=== PATIENT | female | born 1995 | race Caucasian/White ===

== ENCOUNTER 2019-06-13 08:04 | Inpatient (IN) | payer OTHER ==
[2019-06-13] MEDS ORDERED: Buffered Lidocaine 1% SYRIN* 1 ML/SYRINGE INTRADERM ONE (08:48)
[2019-06-13] MEDS ORDERED: Lactated Ringers 1000 ML Bag* 1,000 ML IV ONE ×2 (08:48→13:04)
--- NOTE | 2019-06-13 08:56 | HP ---
General Information - Reason for Visit at 40 6/7 weeks gestational age. - General Information Maternal Age: 24 Grav: 2 Para: 0 SAB: 1 IEA: 0 Estimated Due Date: 06/07/19 Determined By: Early Ultrasound Gestational Age in Weeks/Days: 40 6/7 Maternal Blood Type and Rh: A Positive - Results this Serology/RPR Result: Non-Reactive Rubella Result: Immune HBsAg Result: Negative HIV Result: Negative GBS Culture Result: Negative Past Medical History Delivery History: See Records Pertinent Past Medical History: See Records Past Medical History Comment: Hiatal hernia GERD Migraine headaches Anxiety/Depression Pertinent Past Surgical History: See Records Past Surgical History Comment: Ganglion cyst removal 2009 and 2010 Pertinent Family History: See Records - Patient is adopted - Antepartal Records Antepartal Records: Reviewed, Complicated by: - Popstdates Review of Systems Constitutional: Comfortable CV Complaint: No Respiratory: Shortness of Breath: No Gastrointestinal: No Nausea/Vomiting, Normal Bowel Movement Genitourinary: No Dysuria, No Bleeding, No Leaking Fluid Musculoskeletal: No Complaint, No Epigastric Pain Neurological: No Headache, No Visual Changes Movement: Normal Exam Allergies/Adverse Reactions: Allergies Penicillins Allergy (Verified 05/04/18 16:59) GI Upset Temp 98.6 BP 134/79 P 90's RR 18 POx 100% RA - Measurements Height: 5 ft 5 in Weight: 175 lb Weight in lbs: 175.874401 Body Mass Index (BMI): 29.1 Pre- Weight: 145 lb Weight Gained This : 30 lbs and 0 ozs - Exam Breast: Breast Exam Deferred CVA: No CVA Tenderness Extremities: No Edema Heart: Normal Rhythm/Heart Sounds HEENT: No Significant Findings Lungs: Clear Bilaterally Rectal: Rectal Exam Deferred Reflexes: DTR 2+ Thyroid: No Thyromegaly - Abdominal Exam Abdomen Exam: Non-Tender, Fundal Height Consistent with Dates - Ultrasound/Biophysical Profile Ultrasound Status: Not Done Biophysical Profile: Normal Reactive NST Targeted Exam Findings See L&D Outpatient Visit Provider Note for Findings: N/A Cervical Exam: 4cm Effacement: 80% Station: -1 Presenting Part: Vertex Membrane Status: Intact EFM Findings - External Monitor Findings Baseline Heart Rate: 135 External Monitor Findings: Accelerations Present, No Pattern of Variable or Late Decelerations Contractions: None Assessment/Plan - Assessment Postdates - Obstetrical Risk Factors Obstetrical Risk Factors: Post-Dates - Plan Plan: Induction, IV Hydration - Date/Time of Admission Date of Admission: 06/13/19 Time of Admission: 08:40
[2019-06-13] MEDS ORDERED: Lactated Ringers 1000 ML Bag* 1,000 ML IV SCH ×2 (09:00→22:00)
[2019-06-13] MEDS ORDERED: Oxytocin in LR* 20 UNITS/1,000 ML BAG IVPB ONE ×2 (09:02→20:27)
[2019-06-13 09:07] LABS: ABS Basophils 0.1 10^3/ul (0-0.2); ABS Eosinophils 0.1 10^3/ul (0-0.6); ABS Lymphocytes 1.5 10^3/ul (1.0-4.8); ABS Monocytes 0.6 10^3/ul (0-0.8); ABS Neutrophils 7.2 10^3/ul (1.5-7.7); Eosinophil % 0.9 %; Hematocrit 33 % (35-47); Hemoglobin 11.4 g/dL (12.0-16.0); Lymphocyte % 16.1 %; Mean Corpuscular HGB Conc 35 g/dL (31-36); Mean Corpuscular Hemoglobin 29 pg (27-31); Mean Corpuscular Volume 84 fL (80-97); Mean Platelet Volume 6.7 fL (7.4-10.4); Platelet Count 386 10^3/uL (150-450); Red Cell Distribution Width 15 % (10-15); White Blood Count 9.4 10^3/uL (3.5-10.8)
[2019-06-13] MEDS: Oxytocin in LR* 20 UNITS/1,000 ML BAG IVPB SCH ×2 (09:16→20:48)
[2019-06-13] MEDS ORDERED: OBEPIDURAL* 250 ML EPIDURAL ONE (12:37)
[2019-06-13] MEDS ORDERED: Bupivacaine 0.25% SDV PF* 10 ML VIAL INJ ONE (12:42)
[2019-06-13] MEDS ORDERED: Phenylephrine 40 MCG/ML SYRINGE IV PUSH PRN (13:04)
[2019-06-13] MEDS ORDERED: EPHEDrine (Pressors)* 50 MG/ML VIAL IV PUSH PRN (13:04)
[2019-06-13] MEDS ORDERED: Famotidine TAB* 20 MG PO PRN (13:04)
[2019-06-13] MEDS ORDERED: Sodium Citrate/Citric Acid* 15 ML UDC PO PRN (13:04)
[2019-06-13] MEDS ORDERED: OBEPIDURAL* 250 ML EPIDURAL SCH (14:00)
[2019-06-13] MEDS: Lactated Ringers 1000 ML Bag* 1,000 ML IV SCH ×2 (14:10→18:40)
[2019-06-13 18:31] LABS: Urine Benzodiazepine Screen None Detected (None Detect); Urine Opiates Screen None Detected (None Detect)
[2019-06-13] MEDS ORDERED: Misoprostol TAB* 200 MCG PR ONE (21:20)
[2019-06-13] MEDS ORDERED: Glycerin ADULT SUPP PR PRN (21:20)
[2019-06-13] MEDS ORDERED: Witch Hazel PAD* JAR TOPICAL PRN (21:20)
--- NOTE | 2019-06-13 21:24 | PROCNOTE ---
[facility] OB: Delivery Note - Delivery B Date of : 06/13/19 Time of : 20:55 Sex: Male Weight at : 8 lb 3 oz Score 1 Minute: 8 Score 5 Minutes: 8 Gestational Age in Weeks and Days at Delivery: 40 Weeks and 6 Days Delivery Method: Spontaneous Vaginal Labor: Induced Did Patient attempt ?: N/A, No Previous Amniotic Fluid: Clear Estimated Blood Loss: 350 Anesthesia/Analgesia: CEI for Labor - Nursery Level of Nursery: Regular/Bedside - Perineum Perineal Injury: Perineal Laceration, 2nd Degree Perineal Repair: By Delivering Practioner - Events Delivery Events of Note: None Apply
[2019-06-13] MEDS ORDERED: Ammonia Inhalant* 1 EA AMP ONE (22:07)
[2019-06-13] MEDS: Ibuprofen TAB* 600 MG PO PRN (22:14)
[2019-06-13] MEDS: Dibucaine 1% 28.35 GM TUBE PR PRN (22:15)
[2019-06-14] MEDS ORDERED: Lidocaine 1% INJ* 10 MG/ML 30 ML SDV ONE (00:06)
[2019-06-14] MEDS: Acetaminophen TAB* 325 MG PO PRN ×3 (03:55→20:17)
[2019-06-14 06:02] LABS: ABS Lymphocytes 1.5 10^3/ul (1.0-4.8); ABS Neutrophils 11.7 10^3/ul (1.5-7.7); Eosinophil % 0.2 %; Hematocrit 29 % (35-47); Hemoglobin 9.5 g/dL (12.0-16.0); Lymphocyte % 10.5 %; Mean Corpuscular HGB Conc 33 g/dL (31-36); Mean Corpuscular Hemoglobin 28 pg (27-31); Mean Corpuscular Volume 85 fL (80-97); Mean Platelet Volume 6.6 fL (7.4-10.4); Platelet Count 352 10^3/uL (150-450); Red Blood Count 3.35 10^6 /uL (3.70-4.87); Red Cell Distribution Width 15 % (10-15); White Blood Count 14.3 10^3/uL (3.5-10.8)
[2019-06-14] MEDS: Docusate CAP* 100 MG PO SCH ×3 (08:02→20:18)
[2019-06-14] MEDS: Ferrous Gluconate TAB* 324 MG TAB PO SCH ×2 (08:03→20:18)
[2019-06-14] MEDS: Ibuprofen TAB* 600 MG PO PRN ×3 (08:03→22:31)
[2019-06-14] MEDS ORDERED: Simethicone TAB* 80 MG TAB.CHEW PO SCH (08:30)
[2019-06-14] MEDS: Dibucaine 1% 28.35 GM TUBE PR PRN (20:17)
[2019-06-15] MEDS: Acetaminophen TAB* 325 MG PO PRN ×2 (00:18→04:21)
[2019-06-15] MEDS: Ibuprofen TAB* 600 MG PO PRN ×2 (04:21→13:29)
[2019-06-15 09:04] VITALS: BP 116/72
[2019-06-15] MEDS: Docusate CAP* 100 MG PO SCH (13:29)
== END 2019-06-15 15:45 | disposition home or self-care (01) | DRG 560 ==
LOC: MCHOBOUT 08:04 → MCHOB 08:54
PROVIDERS: ADMIT Obstetrics & Gynecology; ATTEND Obstetrics & Gynecology
PROC: 10E0XZZ Delivery of Products of Conception, External Approach (ICD-10-PCS; principal; 2019-06-13)
PROC: 3E033VJ Introduction of Other Hormone into Peripheral Vein, Percutaneous Approach (ICD-10-PCS; 2019-06-13)
PROC: 10907ZC Drainage of Amniotic Fluid, Therapeutic from Products of Conception, Via Natural or Artificial Opening (ICD-10-PCS; 2019-06-13)
PROC: 0KQM0ZZ Repair Perineum Muscle, Open Approach (ICD-10-PCS; 2019-06-13)
DX: O48.0 Post-term pregnancy (principal); Z37.0 Single live birth; Z3A.40 40 weeks gestation of pregnancy; O70.1 Second degree perineal laceration during delivery; O99.344 Other mental disorders complicating childbirth; F41.8 Other specified anxiety disorders; O69.81X0 Labor and delivery complicated by cord around neck, without compression, not applicable or unspecified; O90.81 Anemia of the puerperium; D64.9 Anemia, unspecified
CPT/HCPCS: 36415; 80307; 85025; 86850; 86900; 86901; A9270-GY; G0480; J3490